=== PATIENT | female | born 1985 | race Caucasian/White ===

== ENCOUNTER 2017-05-07 19:55 | Inpatient (IN) ==
[2017-05-07] MEDS ORDERED: BRETHINE SUBQ PRN (19:58)
[2017-05-07] MEDS ORDERED: ZOFRAN IV PRN (19:58)
[2017-05-07] MEDS ORDERED: PITOCIN 30 UNITS/LR 30 UNITS/500 ML IV.SOLN IV SCH (19:58)
[2017-05-07] MEDS ORDERED: TYLENOL PO PRN (19:58)
[2017-05-07] MEDS ORDERED: PEPCID IV PRN (19:58)
[2017-05-07] MEDS ORDERED: PEPCID PO PRN (19:58)
[2017-05-07] MEDS ORDERED: STADOL IV PRN ×3 (19:58)
[2017-05-07] MEDS ORDERED: AMBIEN PO PRN (19:58)
[2017-05-07] MEDS ORDERED: CYTOTEC PO ONE ×3 (19:58→23:15)
[2017-05-07] MEDS: LR 1,000 ML IV ONE (20:50)
[2017-05-07 21:12] LABS: MANUAL DIFF NEEDED? NO
[2017-05-07 21:13] LABS: BASO% 0.4 % (0.0-0.8); EOS# 0.21 X1000 (0.0-0.7); EOS% 1.5 % (0.0-10.0); HEMATOCRIT 34.2 % (37.0-47.0); HEMOGLOBIN 11.7 g/dL (12.0-16.0); IMM GRAN# 0.11 X1000 (0.0-0.04); IMM GRAN% 0.8 % (0.0-0.5); LYMPH# 2.52 X1000 (1.2-3.4); LYMPH% 17.8 % (20.5-51.1); MCHC 34.2 g/dL (33-37); MCV 84.9 FL (81-99); MONO# 0.97 X1000 (0.11-0.59); MONO% 6.8 % (1.7-9.3); MPV 10.5 FL (7.4-10.4); NEUT% 72.7 % (42.2-75.2); PLT 267 X1000 (130-400); RBC 4.03 XMIL (4.2-5.4)
[2017-05-07 21:32] LABS: URINE SOURCE VOIDED
[2017-05-07 21:40] LABS: BILIRUBIN URINE NEGATIVE (NEGATIVE); BLOOD URINE TRACE (NEGATIVE); CLARITY CLEAR (CLEAR); COLOR YELLOW; GLUCOSE URINE NEGATIVE (NEGATIVE); LEUKOCYTES URINE 1+ (NEGATIVE); NITRITE URINE NEGATIVE (NEGATIVE); PROTEIN URINE NEGATIVE (NEGATIVE); SP GRAVITY URINE 1.005; UR AMPHETAMINES QUAL NONE DETECTED (NONE DETECT); UR BARBITUATES QUAL NONE DETECTED (NONE DETECT); UR BENZODIAZEPIN QUAL NONE DETECTED (NONE DETECT); UR CANNABINOIDS QUAL NONE DETECTED (NONE DETECT); UR COCAINE QUAL NONE DETECTED (NONE DETECT); UR MDMA QUAL NONE DETECTED (NONE DETECT); UR METHADONE QUAL NONE DETECTED (NONE DETECT); UR METHAMPHETAMINE QUAL NONE DETECTED (NONE DETECT); UR OPIATES QUAL NONE DETECTED (NONE DETECT); UR OXYCODONE QUAL NONE DETECTED (NONE DETECT); UR PCP QUAL NONE DETECTED (NONE DETECT); UR TCA QUAL NONE DETECTED (NONE DETECT); UROBILINOGEN URINE NORMAL
[2017-05-07] MEDS ORDERED: CYTOTEC PO SCH (23:59)
[2017-05-08] MEDS: LR 1,000 ML IV ONE (03:10)
[2017-05-08] MEDS ORDERED: FENTANYL IV ONE (04:50)
[2017-05-08] MEDS ORDERED: NAROPIN 0.2% INJ ONE (04:52)
[2017-05-08] MEDS ORDERED: EPHEDRINE ONE (05:10)
[2017-05-08] MEDS ORDERED: MARCAINE 0.25% PF ONE (05:13)
[2017-05-08] MEDS ORDERED: XYLOCAINE-MPF 1% INJ ONE (05:19)
[2017-05-08] MEDS ORDERED: FENTANYL-BUPIV-NS 2 MCG-0.1% 200 ML EPIDURAL PRN (05:46)
[2017-05-08 07:03] LABS: AGAP 13; BUN 4 mg/dL (8-22); CALCIUM 8.6 mg/dL (8.8-10.2); CHLORIDE 105 mmol/L (98-107); COSMO 272; POTASSIUM 2.9 mmol/L (3.5-5.1); SODIUM 138 mmol/L (136-145); TCO2 20 mmol/L (25-35)
[2017-05-08] MEDS ORDERED: M-M-R II VACCINE SUBQ ONE (07:39)
[2017-05-08] MEDS ORDERED: MINERAL OIL PO PRN (07:39)
[2017-05-08] MEDS ORDERED: HYDROXYZINE IM PRN (07:39)
[2017-05-08] MEDS ORDERED: PERCOCET-10 PO PRN (07:39)
[2017-05-08] MEDS ORDERED: BENADRYL PO PRN (07:39)
[2017-05-08] MEDS ORDERED: XYLOCAINE-MPF 1% INJ PRN (07:39)
[2017-05-08] MEDS ORDERED: BOOSTRIX VACCINE IM ONE (07:39)
[2017-05-08] MEDS ORDERED: PITOCIN IM PRN (07:39)
[2017-05-08] MEDS ORDERED: PERCOCET-5 PO PRN (07:39)
[2017-05-08] MEDS ORDERED: AMBIEN PO PRN (07:39)
[2017-05-08] MEDS ORDERED: PITOCIN 30 UNITS/LR 30 UNITS/500 ML IV.SOLN IV ONE (07:39)
[2017-05-08] MEDS ORDERED: CYTOTEC PO PRN (07:39)
[2017-05-08] MEDS ORDERED: MOTRIN PO PRN (07:39)
[2017-05-08] MEDS ORDERED: HYDROXYZINE PO PRN (07:39)
[2017-05-08] MEDS ORDERED: BENADRYL IV PRN (07:39)
[2017-05-08] MEDS ORDERED: PITOCIN 20 UNITS/LR 20 UNITS/1,000 ML IV.SOLN IV SCH (07:39)
[2017-05-08] MEDS: PERI MEDS (DERMOPLAST/NUPERCAINAL/TUCKS) MISC PRN (14:30)
[2017-05-08] MEDS: PERICOLACE PO SCH (21:41)
[2017-05-09 05:23] LABS: HEMATOCRIT 28.3 % (37.0-47.0); HEMOGLOBIN 9.2 g/dL (12.0-16.0); MCHC 32.5 g/dL (33-37); RBC 3.29 XMIL (4.2-5.4)
[2017-05-09] MEDS: PERI MEDS (DERMOPLAST/NUPERCAINAL/TUCKS) MISC PRN (21:12)
[2017-05-09] MEDS: PERICOLACE PO SCH (21:12)
[2017-05-10 07:37] VITALS: BP 145/88
--- NOTE | 2017-05-10 17:16 | DISCHARGE SUMMARY ---
ADMISSION DATE: 05/07/2017 DISCHARGE DATE: 05/10/2017 ADMITTING DIAGNOSES: 1. Term . 2. Tobacco use. 3. For induction. DISCHARGE DIAGNOSES: 1. Term . 2. Tobacco use. 3. For induction. PROCEDURE: Vaginal delivery. CONDITION: Stable. DIET: As tolerated. ACTIVITY: Routine . MEDICATIONS: [id number]-[id number]-[id number] nonsteroidals for cramping. Continue vitamins with iron. Yrde-mro-obkbmdx stool softeners as needed and a prescription for Percocet 5 #14 given for any acute pain. She is to follow up in [address] Fitzgerald. Please refer to Ms. Ochoa's records and delivery note. She was admitted on Friday night, received a dose of Cytotec, went into labor. Delivered very early morning and has been without complaints and is desiring discharge. Vital signs: Stable. She is afebrile. General: She is alert and cooperative, in no acute distress. Neck: Is supple. Lungs: Clear. Heart: Regular sinus rhythm. Abdomen: Is distended but nontender. Hemoglobin 9.2. We will discharge with above instructions. cc: MD Yobani Jo MD
== END 2017-05-10 11:10 | disposition home or self-care (01) ==
LOC: P.LD 19:55
PROVIDERS: ADMIT Obstetrics & Gynecology; ATTEND Obstetrics & Gynecology